=== PATIENT | male | born 1970 | race Caucasian/White ===

== ENCOUNTER 2017-03-31 12:50 | Emergency (ER) | payer OTHER ==
[2017-03-31] MEDS ORDERED: KETOROLAC TROMETHAMINE 60 MG/2 ML VIAL IM ONE ×2 (13:14→13:17)
--- NOTE | 2017-03-31 13:14 | ERNOTE ---
Abdominal HPI - Narrative Date of Service: 03/31/17 - General Chief Complaint: Abdominal Pain Time Seen by Provider: 03/31/17 13:03 Source: patient, family, RN notes reviewed Exam Limitations: no limitations - Immun/Allergies/Home Medications Immunizatons: IMMUNIZATION HX Immunizations Up to Date Yes Allergies/Adverse Reactions: Allergies shellfish derived Allergy (Verified 03/31/17 12:58) Home Medications: HOME MEDICATIONS Allopurinol [Zyloprim (Allopurinol)] 100 mg PO BID 03/31/17 [Last Taken Unknown] Aspirin [Aspirin Chewable] 81 mg PO DAILY 03/31/17 [Last Taken Unknown] Ciprofloxacin HCl [Cipro] 500 mg PO BID #20 tablet 03/31/17 [Last Taken Unknown] Fluvoxamine Maleate 25 mg PO DAILY 03/31/17 [Last Taken Unknown] Loratadine [Claritin] 10 mg PO DAILY 03/31/17 [Last Taken Unknown] Losartan Potassium [Cozaar] 50 mg PO DAILY 03/31/17 [Last Taken Unknown] Mometasone Furoate [Nasonex] 1 spray NS BID 03/31/17 [Last Taken Unknown] Simvastatin [Zocor] 30 mg PO DAILY 03/31/17 [Last Taken Unknown] metroNIDAZOLE [Flagyl] 500 mg PO Q8H #30 tablet 03/31/17 [Last Taken Unknown] - History of Present Illness Narrative: Jake is a 47-year-old male who presents to the emergency Department by private vehicle for abdominal pain that began 2 days ago. He is reporting pain in his left lower quadrant. He has been passing more gas than what is normal for him and reports feeling bloated. He initially thought that he was constipated, but he reports that he has been having more stools than what is usual for him without any improvement in the pain. He denies any nausea or vomiting. His appetite has been decreased, but he reports that eating does not make his pain worse. He has not been taking anything for his symptoms. Timing: intermittent Quality: moderate, aching Activities at Onset: none Prior Abdominal Problems: Present: none Prior Treatment: Present: recently seen - By PCP, treated for possible Lyme disease Review of Systems - Review of Systems Constitutional: Absent: fever, chills, malaise EYE: Present: no symptoms reported ENT: Present: no symptoms reported Respiratory: Absent: shortness of breath, cough Cardiology: Absent: chest pain, palpitations Gastrointestinal/Abdominal: Present: abdominal pain, eating less, drinking less. Absent: nausea, vomiting, diarrhea Genitourinary: Absent: dysuria, hematuria Musculoskeletal: Absent: back pain, muscle pain Skin: Absent: rash, lesions Neurological: Absent: headache, dizziness/light-headedness Endocrine: Present: no symptoms reported Hematologic/Lymphatic: Present: no symptoms reported Psych: Present: no symptoms reported - Patient's Past Medical History Patient History - Medical: Other Patient History - Cardiac/Respiratory: Hypertension, Hyperlipidemia Patient History - Cancer: No Hx of Cancer Patient History - Surgical Procedures: Other - Spleen Patient History - Other: None - Social History Living Situations: home Psych History: No pertinent hx Smoking Status: Never smoker Alcohol Use: none Drug Use: none - Immunizations Immunizations Up to Date: Yes Physical Exam - Physical Exam General Appearance: Present: wd/wn, alert, no apparent distress Neck: Present: normal inspection, nontender, supple Respiratory: Present: no respiratory distress, normal breath sounds, no accessory muscle use, lungs clear Cardiovascular/Chest: Present: regular rate, rhythm, no murmur Gastrointestinal/Abdominal: Present: nondistended, soft, tenderness - LLQ and mid/lower abdomen, abnormal bowel sounds - Hyperactive. Absent: rebound, mass, hernia Back Exam: Present: normal inspection, no CVA tenderness Extremity Exam: Present: normal inspection, normal range of motion, no edema Neurological Exam: Present: alert, oriented, normal mood/affect Skin Exam: Present: normal color, warm/dry ED Progress - Results and Orders Patient's Lab Results:: I have reviewed the patient's lab results. - Vital Signs Patient's Vital Signs:: I have reviewed the patient's vital signs. Vital Signs: Vital Signs 03/31/17 12:51 Temperature 36.6 C Pulse Rate 83 Respiratory 12 Rate Blood Pressure 135/88 O2 Sat by Pulse 97 Oximetry - CT/Ultrasound CT/Ultrasound Narrative: CT of abdomen/pelvis with contrast shows mild diverticulitis - Progress/Reassessment Chief Complaint: Abdominal Pain Progress:: Improved Departure - Departure Clinical Impression: Diverticulitis of sigmoid colon Disposition: Home Follow Up Needed Condition: Stable Instructions: Diverticulitis, [id number] Additional Instructions: Do not drink alcohol while on Flagyl Diet as tolerated Follow up for worsening symptoms as discussed Referrals: Adelaida Tierney DO [Primary Care Provider] - Prescriptions: Ciprofloxacin HCl [Cipro] 500 mg PO BID #20 tablet metroNIDAZOLE [Flagyl] 500 mg PO Q8H #30 tablet
[2017-03-31 13:18] LABS: Urine Bilirubin Negative (NEGATIVE); Urine Blood Negative /ul (NEGATIVE); Urine Ketone Negative (NEGATIVE); Urine Nitrite Negative (NEGATIVE); Urine Protein Negative (NEGATIVE); Urine Urobilinogen Normal (NORMAL)
[2017-03-31 13:28] LABS: Urine Appearance Clear; Urine Bacteria None Seen; Urine Color Yellow; Urine RBC None Seen /hpf (0-5); Urine WBC None Seen /hpf (0-5)
[2017-03-31 13:41] LABS: Hematocrit 45.6 % (42.0-52.0); Hemoglobin 15.9 gm/dL (13.5-18.0); Mean Cell Volume 85.4 fl (78-100); Mean Corpuscular Hemoglobin 29.8 pg (27-31); Mean Corpuscular Hgb Conc 34.9 g/dl (32-36); Mean Platelet Volume 10.9 fl (6.0-9.5); Neutrophil # 6.4 K/mm3 (1.3-6.0); Neutrophil % 56.6 % (42-75.0); Platelet Count 350 K/mm3 (150-450); Red Blood Count 5.34 M/mm3 (4.7-6.0); Red Cell Distribution Width 14.3 % (11.5-14.0); White Blood Count 11.3 K/mm3 (4.0-10.5)
--- OUTSIDE RECORDS SUMMARY | 2017-03-31 13:54 | XMS REPORT | Summary of Care ---
:1970 Author Organization [facility] Address [address] [place] [id number]- Care Team Providers Name Role Phone Iman Lindsay Primary Care Physician [phone] Problem List No Known Problems Encounter 07/05/15 - 07/05/[address] [address]- [facility] Discharge Disposition: Discharged to Home or Self Care Attending Physician: Nicholas Fan MD Vital Signs Most recent to oldest (Reference Range): 1 Respiratory Rate (12-18 Br PM) 16 Br PM (07/05/15 10:09 AM) Pulse Rate (60-100 BPM) 85 BPM (07/05/15 10:09 AM) Pulse Oximetry (90-100 %) 98 % (07/05/15 10:09 AM) Blood Pressure (90-140/65-90 mmHg) 134/84mmHg (07/05/15 10:09 AM) Temperature Celsius (36.1-38.0 Degrees C) 36.7 Degrees C (07/05/15 10:09 AM) Height 172 cm (07/05/15 10:09 AM) Weight 84 kg (07/05/15 10:09 AM) Body Mass Index 28.4 kg/m2 (07/05/15 10:09 AM) Allergies, Adverse Reactions, Alerts Substance Reaction Severity Status Seafood Active Medications acetaminophen-hydrocodone (Vicodin 500 mg-5 mg oral tablet) 1 Tab, By Mouth, every 4 hours, (not to exceed 4000 mg acetaminophen per day), As Needed, as needed for pain, Refills: 0 Ordering provider: Dashawn Alvarado MD amoxicillin-clavulanate (Augmentin 875 mg-125 mg oral tablet) 1 Tab, By Mouth, every 12 hours, As Needed, Take as needed for acute illness or temperature > 101.5 F. Call office or see acute care physician after taking. , Refills: 0 Ordering provider: Dashawn Alvarado MD indomethacin (indomethacin 50 mg oral capsule) 1 Cap, By Mouth, 3 Times a day, Refills: 0 levofloxacin (Levaquin 500 mg oral tablet) 1 Tab, By Mouth, every 24 hours, Refills: 0 Ordering provider: Dashawn Alvarado MD loratadine (Claritin 10 mg oral tablet) 1 Tab, By Mouth, once a day, Refills: 0 lorazepam (Ativan 1 mg oral tablet) 1 Tab, By Mouth, 3 Times a day, As Needed, As needed for abdominal spasm or anxiety., Refills: 0 Ordering provider: Dashawn Alvarado MD multivitamin (multivitamin Multiple Vitamins oral capsule) 1 Cap, By Mouth, once a day, Refills: 0 omeprazole (omeprazole 20 mg oral tablet, extended release) 1 Tab, By Mouth, once a day, Refills: 0 Results No data available for this section Immunizations No data available for this section Procedures No data available for this section Social History No data available for this section Assessment and Plan No data available for this section
[2017-03-31 14:07] LABS: Albumin * 3.5 gm/dl (3.4-5.0); Anion Gap 12.2 mmol/L (6.8-13.8); BUN/Creatinine Ratio 16.7 (9.0-21.6); Bilirubin, Total 0.4 mg/dL (0.0-1.1); CRP 1.6 mg/dL (0.0-0.9); Ca. Corrected For Albumin 8.5 mg/dL (8.4-10.2); Calcium * 8.4 mg/dL (7.9-10.9); Carbon Dioxide 26.6 mmol/L (24-32.6); Potassium 3.8 mmol/L (3.4-4.6); Total Protein 6.9 gm/dL (6.2-8.2)
[2017-03-31] MEDS ORDERED: DIATRIZOATE MEGLU/DIATRIZO SOD 30 ML BTL ONE (14:15)
[2017-03-31] MEDS ORDERED: DIATRIZOATE MEGLU/DIATRIZO SOD 30 ML BTL PO ONE (14:18)
[2017-03-31] MEDS ORDERED: CIPROFLOXACIN HCL 250 MG TABLET PO ONE (17:16)
[2017-03-31] MEDS ORDERED: metroNIDAZOLE 250 MG TABLET PO ONE (17:16)
[2017-03-31] MEDS ORDERED: metroNIDAZOLE 500 MG TABLET ONE (17:23)
[2017-03-31] MEDS ORDERED: CIPROFLOXACIN HCL 250 MG TABLET ONE (17:23)
[2017-03-31 17:38] VITALS: BP 132/81
== END 2017-03-31 17:30 | disposition home or self-care (01) ==
LOC: ER 12:50
DX: K57.92 Diverticulitis of intestine, part unspecified, without perforation or abscess without bleeding (principal); I10 Essential (primary) hypertension; E78.5 Hyperlipidemia, unspecified